=== PATIENT | male | born 1995 | race Caucasian/White ===

== ENCOUNTER 2017-02-09 20:34 | Observation (INO) | payer MEDICAID ==
[~2017-02-09] VITALS: Ht 162.6 cm; Wt 72.0 kg
[2017-02-09] MEDS ORDERED: SOD CHLORIDE 0.9% 1,000 ML IV STA (23:05)
[2017-02-09] MEDS ORDERED: morphine 4 MG/ML VIAL IV STA ×2 (23:05→23:41)
[2017-02-09] MEDS ORDERED: ONDANSETRON 4 MG INJ IV STA (23:05)
[2017-02-09 23:35] LABS: BASOPHIL # 0.1 10^3/ul (0.0-0.1); BASOPHILS % 0.4 % (0.0-2.0); EOSINOPHILS # 0.8 10^3/ul (0.0-0.5); EOSINOPHILS % 4.5 % (0.0-7.0); HEMATOCRIT 44.9 % (42.0-52.0); HEMOGLOBIN 15.2 g/dl (14.0-18.0); LYMPHOCYTES # 4.4 10^3/ul (0.8-2.9); LYMPHOCYTES % 24.6 % (15.0-51.0); MEAN CORPUSCULAR HEMOGLOBIN 29.2 pg (29.0-33.0); MEAN CORPUSCULAR HGB CONC 33.9 g/dl (32.0-37.0); MEAN CORPUSCULAR VOLUME 86.2 fl (82.0-101.0); MONOCYTE # 1.5 10^3/ul (0.3-0.9); MONOCYTES % 8.4 % (0.0-11.0); NEUTROPHILS % 61.7 % (39.0-77.0); PLATELET COUNT 309 10^3/UL (140-415); RED BLOOD COUNT 5.21 10^6/ul (4.70-6.10); RED CELL DISTRIBUTION WIDTH 12.1 % (11.5-14.5); WHITE BLOOD COUNT 17.8 10^3/ul (4.8-10.8)
[2017-02-09 23:49] LABS: INR 1.03; PROTIME 13.6 Sec (11.9-14.9); PT RATIO 1.1
[2017-02-09 23:50] LABS: PARTIAL THROMBOPLASTIN TIME 32.9 Sec (25.0-35.0)
[2017-02-09 23:51] LABS: ALBUMIN 4.7 g/dl (3.3-4.9); ALBUMIN/GLOBULIN RATIO 1.3; BILIRUBIN,INDIRECT 0.6 mg/dl (0-1.1); BILIRUBIN,TOTAL 0.6 mg/dl (0.2-1.3); CALCIUM 9.9 mg/dl (8.4-10.2); CREATININE 0.91 mg/dl (0.61-1.24); POTASSIUM 3.6 mmol/L (3.5-5.1); TOTAL PROTEIN 8.3 g/dl (6.1-8.1)
[2017-02-10] VITALS (17 sets, daily range): BP systolic 97–144; BP diastolic 51–82; PULSE 82–98; RESP 12–18; TEMP 97.6; Ht 162.6 cm; Wt 72.0 kg
[2017-02-10] MEDS ORDERED: IOHEXOL 300MG/ML 150 ML BTL ONE
[2017-02-10] MEDS ORDERED: SOD CHLORIDE 0.9% 100 ML ONE
--- NOTE | 2017-02-10 00:24 | RADRPT ---
PROCEDURE: CT Abdomen and Pelvis with contrast. CLINICAL INDICATION: Right lower quadrant pain TECHNIQUE: CT scan of the abdomen and pelvis with contrast was performed on a multi-detector high- resolution CT scanner. The patient was scanned following the intravenous administration of 100 cc o f Omnipaque-300. Coronal and sagittal reformatted images were obtained from the axial source images . Images were reviewed on a high-resolution PACS workstation. The total exam CTDI equals 7.31 mGy an d the total exam DLP equals 441.69 mGy-cm. One or more the following dose reduction techniques were utilized: Automated exposure control, adjus tment of the mA and / or kV according to patient's size, or use of iterative reconstruction techniqu e. DICOM images are available. COMPARISON: None available FINDINGS: Mild dependent atelectasis in posterior lower lungs. Small calcified granuloma at base of left lower lung lobe posteriorly. No abnormality is seen in the liver, gallbladder, spleen, pancreas, adrenals . No biliary dilatation is seen. No definite abnormality of the stomach is seen. There is minimal hy dronephrosis bilaterally. This is nonspecific. No definite renal or ureteral stone is seen on this c ontrast-enhanced study. No abdominal aortic aneurysm is seen. Small calcifications in the prostate. There is a 1 cm oval area of relative decreased apparent fluid density in the posterior upper prosta te suggestive of a cyst. No definite abnormality of the colon is seen. There is a dilated appendix w ith maximal diameter approximately 8 mm with soft tissue stranding in the adjacent fat consistent wi th acute appendicitis. No periappendiceal abscess or extraluminal air is seen. No pneumoperitoneum i s seen. No significantly dilated small bowel loops are seen. Several less than 1 cm short-axis mildly prominent lymph nodes are seen in mesentery in the right lower quadrant of the abdomen likely inflammatory. No ascites is seen. Small scattered likely bone islands. IMPRESSION: Acute appendicitis. Discussed with MARJORIE Vidal at 12:23 a.m. on 02/10/2017. RPTAT: HJES .Douglas Vasquez MD, Date Time Electronically viewed and signed by .Douglas Vasquez MD, on 02/10/2017 00:24 .S/
[2017-02-10] MEDS ORDERED: PIPER-TAZO 3.375 GM IV (PMX) 50 ML IV ONE (00:30)
--- NOTE | 2017-02-10 00:30 | ERD ---
ER Documentation Chief Complaint Chief Complaint Right lower quadrant abdominal pain HPI The patient is a 21-year-old male who presents to the emergency department with complaint of right lower quadrant abdominal pain. The patient reports that his pain began this afternoon, localizing to the right lower quadrant of the abdomen. He denies any radiation of pain. Denies any associated fevers, sweats , chills, nausea, vomiting, diarrhea, black or bloody stools, dysuria, hematuria , flank pain, testicular pain or swelling. Denies history of similar symptoms in the past. He rates his current pain as 9 out of 10, though has not yet taken any medication for pain relief. Denies any recent travel, stream water exposure or immunocompromise state. Denies recent antibiotic use. No other complaints at this time. ROS All systems reviewed and are negative except as per history of present illness. Allergies Allergies: Coded Allergies: No Known Allergy (Unverified , 02/09/17) PMhx/Soc Medical and Surgical Hx: pt denies Medical Hx, pt denies Surgical Hx Hx Alcohol Use: No Hx Substance Use: No Hx Tobacco Use: No Smoking Status: Never smoker Physical Exam Vitals Vital Signs Date Time Temp Pulse Resp B/P Pulse Ox O2 Delivery O2 Flow Rate FiO2 02/09/17 20:37 98.5 91 20 128/70 99 Physical Exam GENERAL: Well-developed, well-nourished, male, in no acute distress. HEENT: Head is normocephalic, atraumatic. No scleral pallor or icterus. Pupils equal, round and reactive to light. Conjunctiva pink. Moist mucous membranes. No pharyngeal erythema or exudates. NECK: Supple. Full range of motion. RESPIRATORY: Lungs are clear to auscultation bilaterally. Equal breath sounds. Normal expiratory effort. CARDIOVASCULAR: Regular rate and rhythm. Distal pulses are palpable, 2+ bilaterally. Capillary refill is less than 2 seconds. GASTROINTESTINAL: Abdomen is soft and non-distended. Tenderness is to palpation over the right lower quadrant of the abdomen with positive guarding. Positive rebound tenderness. Tenderness at McBurney's point. Positive Rovsing sign. Positive psoas sign. Positive obturator sign. FLANK: No CVA tenderness. BACK: No midline tenderness. EXTREMITIES: No clubbing, cyanosis, or edema. Normal skin perfusion. Moving all extremities. Muscle tone is normal. No focal swelling or erythema. NEUROLOGIC: The patient is alert, awake, and oriented x 3. INTEGUMENT: Skin is intact. Warm and dry. PSYCHIATRIC: Cooperative. Appropriate. Result Diagram: 02/09/17231402/09/175 Results 24 hrs Laboratory Tests Test 02/09/17 23:15 White Blood Count 17.810^3/ul Red Blood Count 5.2110^6/ul Hemoglobin 15.2g/dl Hematocrit 44.9% Mean Corpuscular Volume 86.2fl Mean Corpuscular Hemoglobin 29.2pg Mean Corpuscular Hemoglobin Concent 33.9g/dl Red Cell Distribution Width 12.1% Platelet Count 03072^3/UL Mean Platelet Volume 10.0fl Neutrophils % 61.7% Lymphocytes % 24.6% Monocytes % 8.4% Eosinophils % 4.5% Basophils % 0.4% Nucleated Red Blood Cells % 0.0/100WBC Neutrophils # 11.010^3/ul Lymphocytes # 4.410^3/ul Monocytes # 1.510^3/ul Eosinophils # 0.810^3/ul Basophils # 0.110^3/ul Nucleated Red Blood Cells # 0.010^3/ul Prothrombin Time 13.6Sec Prothrombin Time Ratio 1.1 INR International Normalized Ratio 1.03 Activated Partial Thromboplast Time 32.9Sec Sodium Level 142mmol/L Potassium Level 3.6mmol/L Chloride Level 100mmol/L Carbon Dioxide Level 31mmol/L Anion Gap 15 Blood Urea Nitrogen 17mg/dl Creatinine 0.91mg/dl Glucose Level 70mg/dl Calcium Level 9.9mg/dl Total Bilirubin 0.6mg/dl Direct Bilirubin 0.00mg/dl Indirect Bilirubin 0.6mg/dl Aspartate Amino Transf (AST/SGOT) 29IU/L Alanine Aminotransferase (ALT/SGPT) 41IU/L Alkaline Phosphatase 84IU/L Total Protein 8.3g/dl Albumin 4.7g/dl Globulin 3.60g/dl Albumin/Globulin Ratio 1.30 Lipase 133U/L Current Medications Medications (Trade) Dose Ordered Sig/Regino Route PRN Reason Start Time Stop Time Status Last Admin Dose Admin Sodium Chloride (NS) 1,000 ml @ 1,000 mls/hr Q1H STAT IV 02/09/17 23:05 02/10/17 00:04 DC 02/09/17 23:14 Morphine Sulfate (morphine) 4 mg ONCE STAT IV 02/09/17 23:05 02/09/17 23:06 DC 02/09/17 23:13 Ondansetron HCl (Zofran Inj) 4 mg ONCE STAT IV 02/09/17 23:05 02/09/17 23:06 DC 02/09/17 23:13 Morphine Sulfate (morphine) 4 mg ONCE STAT IV 02/09/17 23:41 02/09/17 23:42 DC 02/09/17 23:50 IV Flush 10 ml 10 ml STK-MED ONCE .ROUTE 02/10/17 00:00 02/10/17 00:01 DC Sodium Chloride (NS) 100 ml @ ud STK-MED ONCE .ROUTE 02/10/17 00:00 02/10/17 00:01 DC Iohexol 150 ml 150 ml STK-MED ONCE .ROUTE 02/10/17 00:00 02/10/17 00:01 DC Piperacillin Sod/ Tazobactam Sod 50 ml @ 100 mls/hr ONCE ONCE IV 02/10/17 00:30 02/10/17 00:59 DC 02/10/17 01:06 Sodium Chloride (NS) 1,000 ml @ 80 mls/hr [id number] IV 02/10/17 00:45 02/10/17 13:14 02/10/17 01:07 Ondansetron HCl (Zofran Inj) 4 mg BRIDGE ORDER PRN IV NAUSEA AND/OR VOMITING 02/10/17 01:00 02/11/17 00:59 Acetaminophen (Tylenol Tab) 650 mg ER BRIDGE PRN PO MILD PAIN/FEVER 02/10/17 01:00 02/11/17 00:59 Procedures/MDM EMERGENCY DEPARTMENT COURSE: IV access established by nursing staff. Laboratory testing and CT imaging performed. Fluids, morphine and Zofran administered. The patient's case was reviewed and discussed with Dr. Nicole, who agrees with the plan of care including labs, treatment and advanced imaging as appropriate. DIAGNOSTIC TESTS AND INTERPRETATION: PROCEDURE: CT Abdomen and Pelvis with contrast. CLINICAL INDICATION: Right lower quadrant pain TECHNIQUE: CT scan of the abdomen and pelvis with contrast was performed on a multi-detector high-resolution CT scanner. The patient was scanned following the intravenous administration of 100 cc of Omnipaque-300. Coronal and sagittal reformatted images were obtained from the axial source images. Images were reviewed on a high-resolution PACS workstation. The total exam CTDI equals 7.31 mGy and the total exam DLP equals 441.69 mGy-cm. One or more the following dose reduction techniques were utilized: Automated exposure control, adjustment of the mA and / or kV according to patient's size, or use of iterative reconstruction technique. DICOM images are available. COMPARISON: None available FINDINGS: Mild dependent atelectasis in posterior lower lungs. Small calcified granuloma at base of left lower lung lobe posteriorly. No abnormality is seen in the liver , gallbladder, spleen, pancreas, adrenals. No biliary dilatation is seen. No definite abnormality of the stomach is seen. There is minimal hydronephrosis bilaterally. This is nonspecific. No definite renal or ureteral stone is seen on this contrast-enhanced study. No abdominal aortic aneurysm is seen. Small calcifications in the prostate. There is a 1 cm oval area of relative decreased apparent fluid density in the posterior upper prostate suggestive of a cyst. No definite abnormality of the colon is seen. There is a dilated appendix with maximal diameter approximately 8 mm with soft tissue stranding in the adjacent fat consistent with acute appendicitis. No periappendiceal abscess or extraluminal air is seen. No pneumoperitoneum is seen. No significantly dilated small bowel loops are seen. Several less than 1 cm short-axis mildly prominent lymph nodes are seen in mesentery in the right lower quadrant of the abdomen likely inflammatory. No ascites is seen. Small scattered likely bone islands. IMPRESSION:Acute appendicitis. .Douglas Vasquez MD, MD Date Time Electronically viewed and signed by .Douglas Vasquez MD, on 02/10/2017 00:24 ' Dr. Nicole discussed patient case with Dr. Cruz, who will admit the patient to Med/Surg. MEDICAL DECISION MAKING: This is a 21-year-old male presenting to the Emergency Department with complaint of right lower quadrant abdominal pain. Patient had tenderness to palpation of the right lower quadrant of the abdomen, with McBurney point tenderness, rebound tenderness and guarding. CBC revealed a leukocytosis of 17.8. CT revealed a dilated appendix with maximal diameter approximately 8 mm with soft tissue stranding in the adjacent fat consistent with acute appendicitis. Zosyn administered. At this time, the patient will be admitted to the care of Dr. Cruz, for further evaluation and management. Departure Diagnosis: Primary Impression: Acute appendicitis Acute appendicitis type: with localized peritonitis Qualified Code: K35.3 - Acute appendicitis with localized peritonitis Condition: Stable LEAH RITTER PA-C Feb 10, 2017 00:30
[2017-02-10] MEDS ORDERED: SOD CHLORIDE 0.9% 1,000 ML IV SCH (00:45)
[2017-02-10] MEDS ORDERED: ACETAMINOPHEN 325 MG TAB PO PRN (01:00)
[2017-02-10] MEDS ORDERED: ONDANSETRON 4 MG INJ IV PRN ×3 (01:00→13:00)
[2017-02-10 01:09] LABS: ADD UMIC YES; UR AMORPHOUS CRYSTAL MODERATE /HPF (NONE SEEN); UR ASCORBIC ACID NEGATIVE (NEGATIVE); UR BILIRUBIN (Dip) NEGATIVE (NEGATIVE); UR BLOOD (Dip) NEGATIVE (NEGATIVE); UR CLARITY CLOUDY (CLEAR); UR COLOR YELLOW (YELLOW); UR GLUCOSE (Dip) NEGATIVE (NEGATIVE); UR KETONES (Dip) NEGATIVE (NEGATIVE); UR LEUKOCYTE ESTERASE (Dip) NEGATIVE Leu/ul (NEGATIVE); UR NITRITE (Dip) NEGATIVE (NEGATIVE); UR RBC 1 /HPF (0-5); UR SPECIFIC GRAVITY (Dip) 1.018 (1.003-1.030); UR TOTAL PROTEIN (Dip) NEGATIVE (NEGATIVE); UR UROBILINOGEN (Dip) 1+ mg/dL (NEGATIVE)
[2017-02-10] MEDS ORDERED: DEXTROSE 5%-0.45% NACL 1,000 ML IV SCH (04:00)
[2017-02-10] MEDS ORDERED: morphine 4 MG/ML VIAL IV PRN (04:00)
[2017-02-10 06:00] LABS: BASOPHIL # 0.1 10^3/ul (0.0-0.1); BASOPHILS % 0.4 % (0.0-2.0); EOSINOPHILS # 0.7 10^3/ul (0.0-0.5); EOSINOPHILS % 5.1 % (0.0-7.0); HEMATOCRIT 42.9 % (42.0-52.0); HEMOGLOBIN 14.3 g/dl (14.0-18.0); LYMPHOCYTES # 4.1 10^3/ul (0.8-2.9); LYMPHOCYTES % 31.2 % (15.0-51.0); MEAN CORPUSCULAR HEMOGLOBIN 29.2 pg (29.0-33.0); MEAN CORPUSCULAR HGB CONC 33.3 g/dl (32.0-37.0); MEAN CORPUSCULAR VOLUME 87.7 fl (82.0-101.0); MEAN PLATELET VOLUME 10.1 fl (7.4-10.4); MONOCYTE # 1.1 10^3/ul (0.3-0.9); MONOCYTES % 8.2 % (0.0-11.0); NEUTROPHIL # 7.2 10^3/ul (1.6-7.5); NEUTROPHILS % 54.8 % (39.0-77.0); PLATELET COUNT 275 10^3/UL (140-415); RED BLOOD COUNT 4.89 10^6/ul (4.70-6.10); RED CELL DISTRIBUTION WIDTH 12.4 % (11.5-14.5); WHITE BLOOD COUNT 13.1 10^3/ul (4.8-10.8)
[2017-02-10] MEDS ORDERED: PIPER-TAZO 3.375 GM IV (PMX) 50 ML IVPB SCH (06:00)
--- NOTE | 2017-02-10 06:29 | HP ---
Date/Time of Note Date/Time of Note DATE: 02/10/17 TIME: 06:25 Assessment/Plan VTE Prophylaxis VTE Prophylaxis Intervention: SCD's Lines/Catheters IV Catheter Type (from Nrsg): Peripheral IV Assessment/Plan Assessment/Plan 1. Acute appendicitis -Keep NPO with IV fluid -IV antibiotics -Pain management -Awaiting surgical evaluation 2. Sepsis, as evidenced by leukocytosis and tachycardia on initial presentation -This is a combination of appendicitis and UTI -IV antibiotic -Follow-up culture results 3. UTI -See #2 HPI/ROS Admit Date/Time Admit Date/Time Feb 10, 2017 at 00:46 Hx of Present Illness This is a 21-year-old male with no significant past medical history who presented to the ER complaining of abdominal pain 1 day. Pain is mainly localized in the right lower quadrant area. Reported nausea but no vomiting. Denied chest pain, shortness of breath, diarrhea, fever/chills or urinary symptoms. When he presented to the ER, vitals were stable. Lab shows WBC of 18,000 otherwise basic labs within acceptable range. CT abdomen pelvis shows acute appendicitis. Urinalysis is consistent with UTI. PMH/Family/Social Social History Smoking Status: Never smoker Exam/Review of Systems Vital Signs Vitals Vital Signs Date Time Temp Pulse Resp B/P Pulse Ox O2 Delivery O2 Flow Rate FiO2 02/10/17 03:27 98.1 73 18 113/61 100 02/10/17 02:55 Room Air Intake and Output 02/09/17 02/09/17 02/10/17 15:00 23:00 07:00 Intake Total 250 ml Balance 250 ml Exam Constitutional: alert, oriented, well developed Head: atraumatic, normocephalic Eyes: EOMI, PERRL Respiratory: clear to auscultation, normal air movement Cardiovascular: nl pulses, regular rate and rhythm Gastrointestinal: soft, tender Extremities: normal pulses Labs Result Diagram: 02/09/17 8957 02/09/17 7202 Medications Medications Current Medications Dextrose/Sodium Chloride (D5-1/2ns) 1,000 ml @ 100 mls/hr Q10H IV Last administered on 02/10/17t 04:08; Admin Dose 100 MLS/HR; Start 02/10/17 at 04: 00 Morphine Sulfate (morphine) 4 mg Q4H PRN IV PAIN; Start 02/10/17 at 04:00 Ondansetron HCl 4 mg 4 mg Q6H PRN IV NAUSEA AND/OR VOMITING; Start 02/10/17 at 04:00 Piperacillin Sod/ Tazobactam Sod (Zosyn 3.375gm/ 50 ml (Pmx)) 50 ml @ 100 mls/ hr Q6 IVPB Last administered on 02/10/17t 05:25; Admin Dose 100 MLS/HR; Start 02/10/17 at 06:00 ALEX MILLS MD Feb 10, 2017 06:29
[2017-02-10 06:31] LABS: ALBUMIN 3.9 g/dl (3.3-4.9); ALBUMIN/GLOBULIN RATIO 1.18; BILIRUBIN,INDIRECT 1.5 mg/dl (0-1.1); BILIRUBIN,TOTAL 1.5 mg/dl (0.2-1.3); CALCIUM 8.9 mg/dl (8.4-10.2); CREATININE 0.88 mg/dl (0.61-1.24); MAGNESIUM 2.1 mg/dl (1.7-2.5); PHOSPHORUS 4.6 mg/dl (2.5-4.9); TOTAL PROTEIN 7.2 g/dl (6.1-8.1)
--- NOTE | 2017-02-10 09:42 | QN ---
Documentation Comment Examined patient at bedside. Having abdominal pain which is improved from before. Remains afebrile. Pending surgery evaluation. Will monitor patient. Case discussed with Dr. Vazquez. ROSALIND JOEL NP Feb 10, 2017 09:42
--- NOTE | 2017-02-10 10:01 | CONS ---
Date/Time of Note Date/Time of Note DATE: 02/10/17 TIME: 10:00 Assessment/Plan Assessment/Plan Additional Assessment/Plan [facility] INPATIENT CONSULTATION NOTE DATE OF SERVICE: 02/10/2017 PLACE OF SERVICE: [facility], preoperative area ASSESSMENT AND PLAN: A very-pleasant and otherwise seemingly healthy 21-year- old gentleman presenting with acute appendicitis. I consented the patient and family (brother) for laparoscopic, possible open appendectomy. Answered all questions. Patient and family appear to understand and agreed with plans. With above assessment, I've recommended the followin. To the operating room for above Thank you very much for having me involved in the care of this very pleasant patient and wonderful family. If you have any questions, please feel free to contact me at [phone]. Nature of presenting problem: High severity Please note that, given the limited number of diagnoses or management options, the limited amount and/or complexity of data needed to be reviewed, and moderate risk of complications and/or morbidity or mortality, this qualifies as low complexity type of decision-making. Disclaimers: 1. Inadvertent spelling and grammatical errors are likely due to electronic health record (EHR)/dictation software used and do not reflect on the quality of delivered patient care. 2. The electronic timestamp recorded on this note does not necessarily reflect the actual date and time of the visit or the service. 3. Portions of this note may have been created through electronic templates and computer algorithms that might bring in information either from the system or from other physicians and providers. Please note that such information may or may not contain errors, the occurrence of which are outside of my control. In general (but not always) this happens either in the beginning or at the end of the note. The portion of the note that I have created are generally done in 1 continuous block of text, flanked at the beginning and at the end by " ", and entered into one field in the EHR. 4. There may be other unanticipated errors in the note that are outside of my control. I can only attest to the portions of the note that I have created. Updated clinical summary: A very-pleasant and otherwise seemingly healthy 21-year-old gentleman presenting with acute appendicitis. Comorbidities: 1. BMI 27.2 CONSULTATION REQUESTED BY: Jonathan Cruz MD Dear Dr. Cruz, Thank you very much for the opportunity to participate in the care of this very pleasant gentleman and his wonderful family. HISTORY OF PRESENT ILLNESS: The patient is a very pleasant 21-year-old gentleman without any known previous medical or surgical history, being admitted to the emergency department at [facility] on 2016 with 1 day history of right lower quadrant abdominal pain without significant radiation and associated with nausea but no significant vomiting. No fevers or chills, no shortness of breath or chest pain, no problems with blood in the stool or urine or issues with diarrhea or constipation. Patient's workup included white blood cell count that was elevated as well as CT scan that was consistent with acute appendicitis. ALLERGIES: NO KNOWN DRUG ALLERGIES MEDICATIONS Documented in the electronic records and reviewed by me. Please see the electronic records for details, as well as details for inpatient medications which were also reviewed by me. SOCIAL HISTORY: The patient lives with family. Works in construction.-[employer];- ETOH;-IVDU FAMILY HISTORY: There are no significant medical, surgical or oncologic issues in the family as reported by the patient or reflected in the chart. REVIEW OF SYSTEMS: Other than mentioned above, there were no other pertinent positives or pertinent negatives in an otherwise complete 14 point review of systems. PHYSICAL EXAMINATION GENERAL: The patient appears to be a very pleasant gentleman of descent lying in bed, appearing stated age, and otherwise in no acute distress. BMI: 27.2 VITAL SIGNS: AVSS (please also see auto important data if available as well as the electronic records) HEENT: Normocephalic and atraumatic. Extraocular muscles and hearing are grossly intact bilaterally and symmetrically. Sclerae are nonicteric. Oral cavity is clear; oral mucosa appear to be pink and moist. Dentition: fair. NECK: Supple. There is no lymphadenopathy or JVD. There is no submental, submandibular or supraclavicular lymphadenopathy. CHEST: Rises symmetrically with each breath; patient is breathing comfortably. There are no audible wheezes, rales or rhonchi on the gross exam. HEART: Pulse is regular and palpable on the right wrist. Capillary refill is normal. Carotid pulses are palpable bilaterally and symmetrically in the neck. EXTREMITIES: Lower extremities contain no pitting edema around the ankles bilaterally and symmetrically. ABDOMEN: Abdomen is soft, minimally to moderately tender in the right lower quadrant and nondistended. No evidence of ascites, organomegaly, caput medusae , engorged subcutaneous veins, or other abnormalities. There are no peritoneal signs or guarding. SKIN: Appears to be pink and feels warm to touch. NEUROLOGIC: Awake, alert, and follows commands appropriately. LABORATORY DATA: See below IMAGING: See electronic chart. Please note that I've personally reviewed all pertinent available images and I agree in general with their overall reported findings. Consultation Date/Type/Reason Admit Date/Time Feb 10, 2017 at 00:46 Social History Smoking Status: Never smoker Exam/Review of Systems Vital Signs Vitals Vital Signs Date Time Temp Pulse Resp B/P Pulse Ox O2 Delivery O2 Flow Rate FiO2 02/10/17 08:15 97.5 84 18 101/51 98 02/10/17 02:55 Room Air Intake and Output 02/09/17 02/09/17 02/10/17 15:00 23:00 07:00 Intake Total 250 ml Balance 250 ml Results Result Diagram: 02/10/17 0425 02/10/17 0425 Results 24 hrs Laboratory Tests Test 02/09/17 23:15 02/10/17 04:25 White Blood Count 17.8 H 13.1 #H Red Blood Count 5.21 4.89 Hemoglobin 15.2 14.3 Hematocrit 44.9 42.9 Mean Corpuscular Volume 86.2 87.7 Mean Corpuscular Hemoglobin 29.2 29.2 Mean Corpuscular Hemoglobin Concent 33.9 33.3 Red Cell Distribution Width 12.1 12.4 Platelet Count 309 275 Mean Platelet Volume 10.0 10.1 Neutrophils % 61.7 54.8 Lymphocytes % 24.6 31.2 Monocytes % 8.4 8.2 Eosinophils % 4.5 5.1 Basophils % 0.4 0.4 Nucleated Red Blood Cells % 0.0 0.0 Neutrophils # 11.0 H 7.2 Lymphocytes # 4.4 H 4.1 H Monocytes # 1.5 H 1.1 H Eosinophils # 0.8 H 0.7 H Basophils # 0.1 0.1 Nucleated Red Blood Cells # 0.0 0.0 Prothrombin Time 13.6 Prothrombin Time Ratio 1.1 INR International Normalized Ratio 1.03 Activated Partial Thromboplast Time 32.9 Urine Color YELLOW Urine Clarity CLOUDY A Urine pH 7.0 Urine Specific Butterfield 1.018 Urine Ketones NEGATIVE Urine Nitrite NEGATIVE Urine Bilirubin NEGATIVE Urine Urobilinogen 1+ H Urine Leukocyte Esterase NEGATIVE Urine Microscopic RBC 1 Urine Microscopic WBC 7 H Urine Amorphous Crystals MODERATE Urine Hemoglobin NEGATIVE Urine Glucose NEGATIVE Urine Total Protein NEGATIVE Sodium Level 142 141 Potassium Level 3.6 4.0 Chloride Level 100 101 Carbon Dioxide Level 31 31 Anion Gap 15 13 Blood Urea Nitrogen 17 13 Creatinine 0.91 0.88 Glucose Level 70 87 Calcium Level 9.9 8.9 Total Bilirubin 0.6 1.5 H Direct Bilirubin 0.00 0.00 Indirect Bilirubin 0.6 1.5 H Aspartate Amino Transf (AST/SGOT) 29 27 Alanine Aminotransferase (ALT/SGPT) 41 34 Alkaline Phosphatase 84 66 Total Protein 8.3 H 7.2 # Albumin 4.7 3.9 Globulin 3.60 H 3.30 H Albumin/Globulin Ratio 1.30 1.18 Lipase 133 Phosphorus Level 4.6 Magnesium Level 2.1 Medications Medications Current Medications Dextrose/Sodium Chloride (D5-1/2ns) 1,000 ml @ 100 mls/hr Q10H IV Last administered on 02/10/17 04:08; Admin Dose 100 MLS/HR; Start 02/10/17 at 04: 00 Morphine Sulfate (morphine) 4 mg Q4H PRN IV PAIN; Start 02/10/17 at 04:00 Ondansetron HCl 4 mg 4 mg Q6H PRN IV NAUSEA AND/OR VOMITING; Start 02/10/17 at 04:00 Piperacillin Sod/ Tazobactam Sod (Zosyn 3.375gm/ 50 ml (Pmx)) 50 ml @ 100 mls/ hr Q6 IVPB Last administered on 02/10/17 05:25; Admin Dose 100 MLS/HR; Start 02/10/17 at 06:00 ISIAH HARMON M.D. Feb 10, 2017 10:01
--- NOTE | 2017-02-10 11:04 | OPR ---
Date/Time of Note Date/Time of Note DATE: 02/10/17 TIME: 12:04 Operative Report Free Text/Dictation [facility] INPATIENT OPERATIVE NOTE PLACE OF SERVICE: [facility] DATE OF SURGERY: 02/10/2017 PREOPERATIVE DIAGNOSIS: 1. Acute appendicitis 2. BMI 27.2 POSTOPERATIVE DIAGNOSIS: 1. Acute appendicitis, early (not perforated) 2. BMI 27.2 OPERATION: 1. Laparoscopic appendectomy SURGEON: Isiah Harmon M.D. PHOTOENGRAVING PROOFER APPRENTICE: Alejandro ANESTHESIA: General endotracheal tube anesthesia ANESTHESIOLOGIST: West Ferrell M.D. BRIEF SUMMARY: An otherwise uncomplicated laparoscopic appendectomy was performed with findings of non-perforated appendicitis. Updated clinical summary: A very-pleasant and otherwise seemingly healthy 21-year-old gentleman presenting with acute appendicitis. Comorbidities: 1. BMI 27.2 BRIEF HISTORY: The patient is a very pleasant and otherwise seemingly healthy 21 -year-old gentleman presenting with acute appendicitis as evidenced by his history and physical of right lower quadrant abdominal pain for 1 day duration associated with nausea, elevated white blood cell count as well as CT findings. I met with the patient and family (his brother) and counseled them regarding the possible options of treatment, and I strongly suggested a laparoscopic, possible open appendectomy. We reviewed the operation in detail as well as the risks, benefits, alternatives, and expected outcomes of this operation. After careful consideration of all the risks, benefits, and alternatives, the patient and family appeared to understand those risks and wished to proceed with surgery. For a detailed report of my consultation with patient and family, please refer to my separate consultation note. STATEMENT OF THE INFORMED CONSENT: The patient and family appeared to understand the risks of the operation to include, but not be limited to risk of postoperative pain and scar tissue, possible infection or bleeding requiring other interventions such as opening the wound, placement of drainage catheters, or other operative interventions; possible injury to surrounding to structures including bowel, bladder, bile duct, or blood vessels, or solid organs such as liver, kidney, or pancreas requiring other interventions or procedures; possible leakage of bowel from anastomotic sites or suture lines causing significant increase in morbidity and mortality and requiring multiple interventions including but not limited to, placement of drainage catheters, imaging studies, as well as operative interventions; possible other source of sepsis such as urinary tract infections or pneumonias, or other sources of potentially life threatening problems such as deep venous thrombus formation causing pulmonary embolism, myocardial arrhythmias and infarctions, and even . After careful consideration of all their options, the patient and family appeared to understand and wished to proceed with surgery. DESCRIPTION OF PROCEDURE: After obtaining informed consent, the patient was brought into the operating room and was placed in a normal supine position, where successful general endotracheal tube anesthesia was performed. Intravenous access was already in place and intravenous antimicrobials had been appropriately chosen and dosed prior to the operation. The patient's abdominal skin was prepped and draped from the nipple line down to the level of the upper thighs in the usual sterile fashion. We then called a surgical time-out where the patient's identification, date of , nature of the operation, allergies , presence of intravenous antimicrobials, presence of needed equipment, and any other concerns were reviewed and agreed upon by all members of the operating room team. We then started the operation by placing a 5 mm skin incision in the left lower quadrant and then introduced a 5 mm [employer] trocar into the peritoneal space, visualizing all the layers of the abdominal wall as we entered. Note that there was no indication of any injury to underlying structures with our entry into the peritoneal space. We insufflated the abdominal cavity to a maximum pressure of 15 mmHg and again inspected the area of insertion and ensured no obvious injury to underlying structures prior to inspecting the abdominal cavity and showing no obvious pus, bowel contents, or other abnormal features. We could not see the appendix very well. We, therefore, injected the future sites of our other trocars with 0.5% Marcaine with epinephrine and placed a 5 mm [employer] trocar into the midline suprapubic area, taking care not to injure the bladder. We also placed a 12 mm trocar in the umbilical midline area, all under direct visualization. With our instruments in place, we had excellent visualization and access to the right lower quadrant. We then identified the appendix, which was inflamed but had a normal base coming out of the cecum. I then went ahead and used blunt dissection to circumferentially isolate the base of the appendix and then transected this using one firing of the white load of the Endo-JENIFER stapler. We also repeated the firing on the mesentery of the appendix and completely disconnected the organ from the colon, delivered this out through the 12 mm trocar site inside of an EndoCatch bag without having to enlarge the fascial defect as well as without contaminating the wound. The specimen was sent to Pathology for further analysis. We then ensured adequate hemostasis and bile stasis, removed all our equipment including the pneumoperitoneum from the abdominal cavity prior to closing the infraumbilical fascia with 1 [id number] 0 Vicryl suture on a UR -6 needle, washing the wounds with copious amounts of normal saline, injecting the initial insertion point of the trocar with 0.25% Marcaine with epinephrine, and then closing the skin using interrupted 4-0 Monocryl sutures. Light dressing was then applied. At the end of the operation, both the sponge count and needle count were reportedly correct x2. The patient tolerated the procedure without any reported complications. ESTIMATED BLOOD LOSS: Less than 5 mL. BLOOD OR BLOOD PRODUCT TRANSFUSIONS: None to my knowledge. SPECIMENS: 1. Appendix GRAFTS: None COMPLICATIONS: None. DISPOSITION: Recovery area. Disclaimers: 1. Inadvertent spelling and grammatical errors are likely due to electronic health record (EHR)/dictation software used and do not reflect on the quality of delivered patient care. 2. The electronic timestamp recorded on this note does not necessarily reflect the actual date and time of the visit or the service. 3. Portions of this note may have been created through electronic templates and computer algorithms that might bring in information either from the system or from other physicians and providers. Please note that such information may or may not contain errors, the occurrence of which are outside of my control. In general (but not always) this happens either in the beginning or at the end of the note. The portion of the note that I have created are generally done in 1 continuous block of text, flanked at the beginning and at the end by " ", and entered into one field in the EHR. 4. There may be other unanticipated errors in the note that are outside of my control. I can only attest to the portions of the note that I have created. ISIAH HARMON M.D. Feb 10, 2017 11:04
[2017-02-10] MEDS ORDERED: FENTAnyl 50 MCG/ML VIAL ONE (11:19)
[2017-02-10] MEDS ORDERED: MIDAZOLAM 1 MG/ML 2 ML INJ ONE (11:19)
[2017-02-10] MEDS ORDERED: BUPIVACAINE 0.5%/EPI (SDV) 30 ML INJ ONE (11:35)
[2017-02-10] MEDS ORDERED: ONDANSETRON 4 MG INJ ONE (11:38)
[2017-02-10] MEDS ORDERED: SUCCINYLCHOLINE CHLORIDE 100 MG/5 ML SYG IV ONE (11:38)
[2017-02-10] MEDS ORDERED: PROPOFOL 20 ML ONE (11:38)
[2017-02-10] MEDS ORDERED: ROCURONIUM 50 MG INJ ONE (11:38)
[2017-02-10] MEDS ORDERED: DEXAMETHASONE 4 MG/ML 1 ML INJ ONE (11:38)
[2017-02-10] MEDS ORDERED: LIDOCAINE 2% (SDV) 5 ML INJ ONE (11:38)
[2017-02-10] MEDS ORDERED: FAMOTIDINE 20 MG INJ ONE (11:38)
[2017-02-10] MEDS ORDERED: PHENYLephrine (100 MCG/ML) 5ML SYG ONE (11:41)
[2017-02-10] MEDS ORDERED: SUGAMMADEX SODIUM 200 MG/2 ML VIAL IV ONE (12:00)
[2017-02-10] MEDS ORDERED: EPHEDrine SULFATE 50 MG/5 ML SYG ONE (12:07)
[2017-02-10] MEDS ORDERED: HYDROmorphONE 1 MG/ML SYG IV PRN (12:30)
[2017-02-10] MEDS ORDERED: HYDROCODONE/APAP (5/325) TAB PO PRN ×2 (12:30)
[2017-02-10] MEDS ORDERED: DOCUSATE SODIUM 100 MG CAP PO PRN (12:30)
[2017-02-10] MEDS ORDERED: HYDROmorphONE 0.5 MG/0.5 ML SYG IV PRN (12:30)
[2017-02-10] MEDS ORDERED: NA PHOSPHATE/BIPHOS 133 ML ENEMA PR PRN (12:30)
[2017-02-10] MEDS ORDERED: BISACODYL 10 MG SUPP PR PRN (12:30)
[2017-02-10] MEDS ORDERED: MEPERIDINE 25 MG INJ ONE (12:52)
[2017-02-10] MEDS ORDERED: HYDROmorphONE (0.2 MG/ML) 10ML SYG IV ONE (12:52)
[2017-02-10] MEDS ORDERED: PROCHLORPERAZINE 10 MG INJ IV PRN (13:00)
[2017-02-10] MEDS ORDERED: HYDROmorphONE (0.2 MG/ML) 10ML SYG IV PRN ×3 (13:00)
[2017-02-10] MEDS ORDERED: DIPHENHYDRAMINE 50 MG INJ IV PRN (13:00)
[2017-02-10] MEDS ORDERED: FENTAnyl 50 MCG/ML VIAL IV PRN ×3 (13:00)
[2017-02-10] MEDS ORDERED: MEPERIDINE 25 MG INJ IV PRN (13:00)
[2017-02-11 03:13] VITALS: BP 96/53; RESP 18
[2017-02-11 05:19] LABS: BASOPHILS % 0.3 % (0.0-2.0); EOSINOPHILS # 0.1 10^3/ul (0.0-0.5); EOSINOPHILS % 0.8 % (0.0-7.0); HEMATOCRIT 41.1 % (42.0-52.0); LYMPHOCYTES # 2.3 10^3/ul (0.8-2.9); LYMPHOCYTES % 16.8 % (15.0-51.0); MEAN CORPUSCULAR HEMOGLOBIN 29.7 pg (29.0-33.0); MEAN CORPUSCULAR HGB CONC 34.1 g/dl (32.0-37.0); MEAN CORPUSCULAR VOLUME 87.3 fl (82.0-101.0); MEAN PLATELET VOLUME 10.1 fl (7.4-10.4); MONOCYTE # 1.3 10^3/ul (0.3-0.9); MONOCYTES % 9.3 % (0.0-11.0); NEUTROPHIL # 10.1 10^3/ul (1.6-7.5); NEUTROPHILS % 72.4 % (39.0-77.0); PLATELET COUNT 289 10^3/UL (140-415); RED BLOOD COUNT 4.71 10^6/ul (4.70-6.10); RED CELL DISTRIBUTION WIDTH 12.4 % (11.5-14.5); WHITE BLOOD COUNT 13.9 10^3/ul (4.8-10.8)
[2017-02-11 05:46] LABS: CALCIUM 9.4 mg/dl (8.4-10.2); CREATININE 0.91 mg/dl (0.61-1.24); MAGNESIUM 2.1 mg/dl (1.7-2.5); POTASSIUM 4.1 mmol/L (3.5-5.1)
[2017-02-11 08:00] VITALS: BP 102/58; RESP 18
[2017-02-11] MEDS ORDERED: FAMOTIDINE 20 MG INJ IV SCH (09:00)
[2017-02-11] MEDS ORDERED: ENOXAPARIN 40 MG/0.4 ML SYG SC SCH (09:00)
--- NOTE | 2017-02-11 09:15 | PN ---
Date/Time of Note Date/Time of Note DATE: 02/11/17 TIME: 09:12 Assessment/Plan VTE Prophylaxis VTE Prophylaxis Intervention: ambulation, LMWH Lines/Catheters IV Catheter Type (from [facility]): Saline Lock Urinary Cath still in place: No Assessment/Plan Chief Complaint/Hosp Course 21-year-old male with no significant past medical history, presented with right- sided abdominal pain who was noted to have acute appendicitis. 1. Acute appendicitis without perforation. Status post laparoscopic appendectomy 02/10/2017. -Continue pain meds. -Postoperative diet and anticoagulation per surgery. 2. Leukocytosis secondary to #1. Improved.. Plan: Follow-up with surgery recommendation on discharge planning whenever it is appropriate. Patient is seen in collaboration with . Problems: Subjective 24 Hr Interval Summary Free Text/Dictation Status post laparoscopic appendectomy. Doing well. Tolerating diet. Exam/Review of Systems Vital Signs Vitals Vital Signs Date Time Temp Pulse Resp B/P Pulse Ox O2 Delivery O2 Flow Rate FiO2 02/11/17 08:00 98.0 82 18 102/58 96 02/10/17 14:15 Room Air 02/10/17 13:31 2.0 Intake and Output 02/10/17 02/10/17 02/11/17 15:00 23:00 07:00 Intake Total 1450 ml 740 ml 640 ml Output Total 5 ml Balance 1445 ml 740 ml 640 ml Exam General: Well developed,adequately built, not in any acute distress . HEENT: Normocephalic, Atraumatic, No laceration or hematoma; Eyes: PEERL, Conjunctiva clear, Anicteric sclera Neck: Supple without any lymphadenopathy, nontender, no JVD, no carotid bruits, trachea midline, no thyromegaly Cardiac: S1, S2 auscultated, regular rhythm and rate, no mumurs or gallop Pulmonary: Normal respiratory effort. Chest clear to auscultation bilaterally, no adventitious breath sounds GI: Laparoscopic incision site remains intact. No tenderness. Abdomen normal to inspection. Soft, non tender, non- distended, no masses, no rebound tenderness or guarding. Bowel sounds active on all four quadrants Genitourinary: Deferred Extremities: No cyanosis, clubbing, or edema. Pulses [2+] bilaterally. Full ROM on all four extremities. No focal weakness appreciated. Neurologic: Alert to person, place, time, and situation. Affect appropriate, intact sensation. Skin: Clean,dry, and intact. No ecchymosis, no rashes, or lesions Results Result Diagram: 02/11/17 0435 02/11/17 0435 Results 24 hrs Laboratory Tests Test 02/11/17 04:35 White Blood Count 13.9 H Red Blood Count 4.71 Hemoglobin 14.0 Hematocrit 41.1 L Mean Corpuscular Volume 87.3 Mean Corpuscular Hemoglobin 29.7 Mean Corpuscular Hemoglobin Concent 34.1 Red Cell Distribution Width 12.4 Platelet Count 289 Mean Platelet Volume 10.1 Neutrophils % 72.4 Lymphocytes % 16.8 Monocytes % 9.3 Eosinophils % 0.8 Basophils % 0.3 Nucleated Red Blood Cells % 0.0 Neutrophils # 10.1 H Lymphocytes # 2.3 Monocytes # 1.3 H Eosinophils # 0.1 Basophils # 0.0 Nucleated Red Blood Cells # 0.0 Sodium Level 140 Potassium Level 4.1 Chloride Level 102 Carbon Dioxide Level 27 Anion Gap 15 Blood Urea Nitrogen 13 Creatinine 0.91 Glucose Level 102 Calcium Level 9.4 Magnesium Level 2.1 Medications Medications Current Medications Ondansetron HCl (Zofran Inj) 4 mg Q6H PRN IV NAUSEA AND/OR VOMITING; Start 12/18 at 04:00 Acetaminophen/ Hydrocodone Bitart ([place] (5/325)) 1 tab Q4H PRN PO PAIN LEVEL 4 -7 Last administered on 02/10/17t 20:41; Admin Dose 1 TAB; Start 02/10/17 at 12:30 Acetaminophen/ Hydrocodone Bitart ([place] (5/325)) 2 tab Q4H PRN PO PAIN LEVEL 7 -10; Start 02/10/17 at 12:30 Hydromorphone HCl (Dilaudid) 0.5 mg Q2 PRN IV PAIN; Start 02/10/17 at 12:30 Hydromorphone HCl (Dilaudid) 1 mg Q2 PRN IV PAIN; Start 02/10/17 at 12:30 Docusate Sodium (Colace) 100 mg BID PRN PO CONSTIPATION; Start 02/10/17 at 12: 30 Bisacodyl (Dulcolax Supp) 10 mg BID PRN MT CONSTIPATION; Start 02/10/17 at 12: 30 Sodium Biphosphate/ Sodium Phosphate (Fleet Enema) 133 ml BID PRN MT CONSTIPATION; Start 02/10/17 at 12:30 Famotidine (Pepcid Iv) 20 mg DAILY IV ; Start 02/11/17 at 09:00 Enoxaparin Sodium (Lovenox) 40 mg DAILY SC ; Start 02/11/17 at 09:00 ROSALIND JOEL NP Feb 11, 2017 09:15
--- NOTE | 2017-02-11 09:24 | PDOCDIS ---
Discharge Instructions CONDITION Patient Condition: Stable HOME CARE INSTRUCTIONS: Diet Instructions: RegularSpecial Diet: Regular ACTIVITY: Activity Restrictions: Slowly Increase Activity Rest between Activity Avoid heavy lifting Avoid Heavy Housework Bathing Restrictions: ShowerActivity Restrictions Comment: May shower tomorrow 02/11 and remove dressings FOLLOW UP/APPOINTMENTS Follow-up Plan Follow-up with in 1 week. "Please call [phone] if any of fever, nausea, vomiting, discharge from wound, wound redness, increase or sudden pain, blood in stool or vomit, or any other unusual signs or symptoms. Also, please call the same number in a few days to schedule an appointment for your follow up visit. Patient may remove dressings tomorrow. Showers OK starting tomorrow. No swimming , hot tub or bath for 2 weeks. No lifting more than 25 lbs for 8 weeks." Follow up with primary care physician in 1 week If you don't have one please let someone know, we can give you resources that may help you pick one. You may also call your insurance company to assign one to you. Review your medication list with your nurse before leaving and if you need new prescriptions please let your nurse know. I may have made changes to your home medications or given you new prescriptions, please let your primary doctor know as well. Stay compliant with your medications and report any side effects to your PCP or pharmacist. Return to the ER if you have any concerns and cannot reach your doctors or call your insurance company, they usually have a nurse that can help you. Call 911 or go to the nearest emergency room if experiencing loss of consciousness, dizziness, chest pain, shortness of breath, vomiting/abdominal pain, speech difficulties, motor weakness or any unusual symptoms. ROSALIND JOEL NP Feb 11, 2017 09:24
[2017-02-11] MEDS ORDERED: HYDR-3498 PO (09:25)
[2017-02-11] MEDS ORDERED: DOCU-144 PO (09:27)
--- NOTE | 2017-02-11 09:32 | DS ---
Date/Time of Note Date/Time of Note DATE: 02/11/17 TIME: 09:31 Discharge Summary Admission/Discharge Info Admit Date/Time Feb 10, 2017 at 00:46 Discharge Date/Time Discharge Diagnosis 1. Acute appendicitis without perforation. Status post laparoscopic appendectomy. 2. Leukocytosis secondary to #1. Improved. Patient Condition: Stable Consults , surgery. Procedures 02/10/2017. CT abdomen and pelvis. Acute appendicitis. 02/10/2017. Laparoscopic appendectomy. Hospital Course This is a 21-year-old male with no significant past medical history, presented with right-sided abdominal pain who was noted to have acute appendicitis. Patient was treated with IV fluids, pain medication and IV antibiotics in the emergency room and was admitted. Patient had surgery evaluation. On 02/10/2017, patient had undergone laparoscopic appendectomy. There was no evidence of perforation. Patient tolerated procedure well. Postoperatively he did not require any antibiotics. Leukocytosis was resolving. Patient is able to tolerate diet and activities well. At this time, patient is medically stable for discharge with outpatient follow-up with surgery clinic in 1 week. Disposition: Home. Patient verbalized discharge instructions. Approximately 60 minute was spent in coordinating the discharge on this patient. Patient was seen in collaboration with Follow-up Plan Follow-up with in 1 week. "Please call [phone] if any of fever, nausea, vomiting, discharge from wound, wound redness, increase or sudden pain, blood in stool or vomit, or any other unusual signs or symptoms. Also, please call the same number in a few days to schedule an appointment for your follow up visit. Patient may remove dressings tomorrow. Showers OK starting tomorrow. No swimming , hot tub or bath for 2 weeks. No lifting more than 25 lbs for 8 weeks." Follow up with primary care physician in 1 week If you don't have one please let someone know, we can give you resources that may help you pick one. You may also call your insurance company to assign one to you. Review your medication list with your nurse before leaving and if you need new prescriptions please let your nurse know. I may have made changes to your home medications or given you new prescriptions, please let your primary doctor know as well. Stay compliant with your medications and report any side effects to your PCP or pharmacist. Return to the ER if you have any concerns and cannot reach your doctors or call your insurance company, they usually have a nurse that can help you. Call 911 or go to the nearest emergency room if experiencing loss of consciousness, dizziness, chest pain, shortness of breath, vomiting/abdominal pain, speech difficulties, motor weakness or any unusual symptoms. Primary Care Provider Not On Staff Doctor Pending Labs Laboratory Tests Test 02/11/17 04:35 White Blood Count 13.910^3/ul (4.8-10.8) Red Blood Count 4.7110^6/ul (4.70-6.10) Hemoglobin 14.0g/dl (14.0-18.0) Hematocrit 41.1% (42.0-52.0) Mean Corpuscular Volume 87.3fl (82.0-101.0) Mean Corpuscular Hemoglobin 29.7pg (29.0-33.0) Mean Corpuscular Hemoglobin Concent 34.1g/dl (32.0-37.0) Red Cell Distribution Width 12.4% (11.5-14.5) Platelet Count 95024^3/UL (140-415) Mean Platelet Volume 10.1fl (7.4-10.4) Neutrophils % 72.4% (39.0-77.0) Lymphocytes % 16.8% (15.0-51.0) Monocytes % 9.3% (0.0-11.0) Eosinophils % 0.8% (0.0-7.0) Basophils % 0.3% (0.0-2.0) Nucleated Red Blood Cells % 0.0/100WBC (0.0-0.0) Neutrophils # 10.110^3/ul (1.6-7.5) Lymphocytes # 2.310^3/ul (0.8-2.9) Monocytes # 1.310^3/ul (0.3-0.9) Eosinophils # 0.110^3/ul (0.0-0.5) Basophils # 0.010^3/ul (0.0-0.1) Nucleated Red Blood Cells # 0.010^3/ul (0.0-0.0) Sodium Level 140mmol/L (135-144) Potassium Level 4.1mmol/L (3.5-5.1) Chloride Level 102mmol/L (97-110) Carbon Dioxide Level 27mmol/L (21-31) Anion Gap 15 (8-16) Blood Urea Nitrogen 13mg/dl (7-20) Creatinine 0.91mg/dl (0.61-1.24) Glucose Level 102mg/dl (70-220) Calcium Level 9.4mg/dl (8.4-10.2) Magnesium Level 2.1mg/dl (1.7-2.5) ROSALIND JOEL V. COMPOSITION BOARD PRESS OPERATOR Feb 11, 2017 09:32
--- NOTE | 2017-02-11 13:04 | PN ---
Date/Time of Note Date/Time of Note DATE: 02/11/17 TIME: 13:02 Assessment/Plan Lines/Catheters IV Catheter Type (from Nrsg): Saline Lock [facility] in Place (from Nrsg): No Assessment/Plan Assessment/Plan [facility] Progress Note Date of Service: 02/11/17 Today's Impression & Plan: Overall doing well post op without major issues. No major wound problems. With above assessment, I've recommended the following for today: 1. Ok to d/c home from my standpoint 2. F/u with me in 2-3 weeks for wound check 3. F/u with PCP 4. D/c instructions: Please call [phone] if any of fever, nausea, vomiting, discharge from wound , wound redness, increase or sudden pain, blood in stool or vomit, or any other unusual signs or symptoms. Also, please call the same number in a few days to schedule an appointment for your follow up visit. Patient may remove dressings tomorrow. Showers OK starting tomorrow. No swimming , hot tub or bath for 2 weeks. No lifting more than 25 lbs for 8 weeks. Nature of presenting problem: moderate risk Complexity of decision making: Straight forward complexity Thank you again for your great care of this very pleasant patient and wonderful family. If there are any questions, please feel free to call me at [phone]. Disclaimer: Inadvertent spelling or grammatical errors are likely due to EHR/ dictation software use and do not reflect on the overall quality of patient care. Updated Clinical Summary: Otherwise healthy 21 y/o s/p lap appy at [facility] on 02/10/17 for acute appendicitis. Comorbidities: 1. BMI 27.2 2. S/p lap appy at [facility] on 02/10/17 for acute appendicitis Subjective: No major events or complaints; no abd pain and under control with medications; no n/v/d; no sob or cp; + flatus; + activity Objective: Vitals: See below Exam: GENERAL: On exam, the patient was laying in bed and appeared to be comfortable and in no acute distress. ABDOMEN: Soft, nontender and nondistended. Incision dressings are clean, dry and intact without any evidence of erythema, edema, discharge, or hernia. There are no peritoneal signs or guarding. SKIN: Skin appears to be pink and feels warm to touch. NEUROLOGIC: Patient is awake, alert, and follows commands appropriately. Exam/Review of Systems Vital Signs Vitals Vital Signs Date Time Temp Pulse Resp B/P Pulse Ox O2 Delivery O2 Flow Rate FiO2 02/11/17 11:36 Simple Mask 6.0 02/11/17 08:00 98.0 82 18 102/58 96 Intake and Output 02/10/17 02/10/17 02/11/17 14:59 22:59 06:59 Intake Total 1450 ml 740 ml 640 ml Output Total 5 ml Balance 1445 ml 740 ml 640 ml Results Result Diagram: 02/11/17 0435 02/11/17 0435 ISIAH HARMON M.D. Feb 11, 2017 13:04
== END 2017-02-11 15:46 | disposition home or self-care (01) ==
LOC: FTE 20:34 → PP2 02-10 00:46
PROVIDERS: ADMIT Internal Medicine; ATTEND Internal Medicine
DX: K35.80 Unspecified acute appendicitis (principal)
CPT/HCPCS: 44970; 74177; 80048; 80053; 81001; 83690; 83735; 84100; 85025; 85610; 85730; 88304; J1100; J1170; J1650; J2175; J2250; J2270; J2370; J2405; J2543; J3010; J7030; J7042; Q9967; Z7500; Z7512; Z7610; G0378

== ENCOUNTER 2017-02-20 08:30 | Outpatient (CLI) | END 2017-02-20 17:00 | disposition home or self-care (01) ==